=== PATIENT | male | born 1970 ===

== ENCOUNTER 2017-09-12 11:15 | Inpatient (IN) | payer MEDICAID ==
[2017-09-12] MEDS ORDERED: Sodium Chloride 0.9% 1,000 ML IV ONE (12:21)
--- NOTE | 2017-09-12 12:43 | C.PDOC ---
History Of Present Illness 46 y/o male with PMHx of alcohol abuse, brought in by ambulance for complaints of multiple episodes of watery diarrhea and vomiting for 2 days. Noted some blood in the vomitus this morning. Pt reports he is not tolerating PO since this morning. Otherwise pt denies fever, chills, chest pain, SOB, dizziness, or blood in the stool. Also notes his skin is slightly yellow. Time Seen by Provider: 09/12/17 12:00 Chief Complaint (Nursing): GI Problem History Per: Patient History/Exam Limitations: no limitations Onset/Duration Of Symptoms: Days (x2) Current Symptoms Are (Timing): Still Present Associated Symptoms: Vomiting, Diarrhea Past Medical History Reviewed: Historical Data, Nursing Documentation, Vital Signs Vital Signs: Last Vital Signs Temp 99.5 F 09/12/17 11:40 Pulse 78 09/12/17 14:24 Resp 17 09/12/17 14:24 BP 104/59 L 09/12/17 14:24 Pulse Ox 100 09/12/17 14:24 - Medical History PMH: Diabetes, GERD Surgical History: No Surg Hx Family History: States: No Known Family Hx - Social History Hx Tobacco Use: No Hx Alcohol Use: No (FORMER ALCOHOLIC) Hx Substance Use: No Review Of Systems Except As Marked, All Systems Reviewed And Found Negative. Constitutional: Negative for: Fever, Chills Cardiovascular: Negative for: Chest Pain Respiratory: Negative for: Shortness of Breath Gastrointestinal: Positive for: Nausea, Vomiting, Abdominal Pain, Diarrhea, Hematemesis. Negative for: Hematochezia, Rectal Pain Skin: Positive for: Jaundice Neurological: Negative for: Dizziness Physical Exam - Physical Exam Appears: Non-toxic, No Acute Distress, Chronically Ill Skin: Warm, Dry, Jaundice (slight) Head: Normacephalic Eye(s): bilateral: PERRL, Scleral Icterus (mild) Nose: No Flaring, No Discharge Oral Mucosa: Moist, No Drooling Tongue: Normal Appearing Lips: Normal Appearing Throat: No Erythema, No Drooling Neck: Trachea Midline, No Midline Cervical Tenderness, No Paracervical Tenderness, Supple Chest: Symmetrical, No Deformity Cardiovascular: Rhythm Regular, No Murmur, No JVD, Other ((-) carotid bruits B/L ) Respiratory: No Decreased Breath Sounds, No Accessory Muscle Use, No Rales, No Rhonchi, No Wheezing Gastrointestinal/Abdominal: Soft, Tenderness (mild epigastric tenderness), No Organomegaly, No Distention, No Guarding, No Rebound Back: No CVA Tenderness Extremity: Normal ROM, No Pedal Edema, No Swelling Extremity: Bilateral: Atraumatic, No Pedal Edema, Normal ROM Pulses: Left Dorsalis Pedis: Normal, Right Dorsalis Pedis: Normal Neurological/Psych: Oriented x3, Normal Speech, Normal Motor, Normal Sensation, Normal Reflexes ED Course And Treatment - Laboratory Results Result Diagrams: 09/12/17 12:33 09/12/17 12:33 Lab Interpretation: Abnormal ECG: Interpreted By Me, Viewed By Me ECG Interpretation: Normal Interpretation Of ECG: SR@65/min, NAD, no acute T wave or ST-T changes O2 Sat by Pulse Oximetry: 100 (RA) Pulse Ox Interpretation: Normal Progress Note: Pt wqasOBS in EDfor 3 hours and remained unchanged. on re-eval, appears comofrtable, hemodynamicaly stable. Pale, sick appearence. Blood work review and appears abnormal. CT abd/pelvis acute pancreatitis. Case discussed with and admission arranged to tele w/dx: GI bleed, Acute anemia, acute pancreatitis. Transfusion of PRBS initaited, per request . Disposition - Disposition Disposition: HOSPITALIZED Disposition Time: 14:05 Condition: STABLE Forms: [facility] ([place]) - Clinical Impression Clinical Impression: Gastrointestinal hemorrhage, Pancreatitis, Anemia - PA / PARASITOLOGY TEACHER / Resident Statement MD/DO has reviewed & agrees with the documentation as recorded. - Scribe Statement The provider has reviewed the documentation as recorded by the Scribe (Jess Werner) All medical record entries made by the Scribe were at my direction and personally dictated by me. I have reviewed the chart and agree that the record accurately reflects my personal performance of the history, physical exam, medical decision making, and the department course for this patient. I have also personally directed, reviewed, and agree with the discharge instructions and disposition.
[2017-09-12 12:44] LABS: HEMOGLOBIN 7.4 g/dL (12.0-18.0); NRBC % 0.1 % (0.0-2.0); WHITE BLOOD COUNT 2.8 K/uL (4.8-10.8)
[2017-09-12 12:46] LABS: SQUAMOUS EPITHIAL < 1 /hpf (0-5); URINE BILIRUBIN NEGATIVE (NEGATIVE); URINE BLOOD NEGATIVE (NEGATIVE); URINE CLARITY Clear (Clear); URINE COLOR Amber (YELLOW); URINE GLUCOSE (UA) NORMAL (Normal); URINE LEUKOCYTE ESTERASE NEG Leu/uL (Negative); URINE PROTEIN 1+ mg/dL (NEGATIVE)
[2017-09-12 12:50] LABS: BASO % 0.8 % (0.0-2.0); EOS % 0.1 % (0.0-4.0); LYMPH # 0.5 K/uL (1.0-4.3); MEAN CELL VOLUME 88.6 fL (80.0-94.0); MEAN CORPUSCULAR HEMOGLOBIN 28.9 pg (27.0-31.0); MEAN CORPUSCULAR HGB CONC 32.6 g/dL (33.0-37.0); MEAN PLATELET VOLUME 9.3 fL (7.2-11.7); MONO # 0.3 K/uL (0.0-0.8); MONO % 9.1 % (0.0-10.0); RBC 2.56 Mil/uL (4.40-5.90); RED CELL DISTRIBUTION WIDTH 16.5 % (11.5-14.5)
[2017-09-12 12:52] LABS: ALB/GLOB RATIO 1.3 (1.0-2.1); ALBUMIN 3.4 g/dL (3.5-5.0); ALT/SGPT 61 U/L (21-72); AST/SGOT 159 U/L (17-59); BLOOD UREA NITROGEN 16 mg/dL (9-20); CALCIUM 8.3 mg/dl (8.6-10.4); GFR AFRICAN-AMERICAN > 60; GFR NON-AFRICAN AMERICAN > 60; LIPASE 39 U/L (23-300)
[2017-09-12] MEDS ORDERED: Sodium Chloride 0.9% 1,000 ML ONE (12:53)
[2017-09-12 12:54] LABS: PROTHROMBIN TIME 21.6 SECONDS (9.7-12.2)
[2017-09-12] MEDS ORDERED: Iodixanol 320 MG/ML 100 ML BOTTLE IV ONE (13:21)
[2017-09-12 13:24] LABS: BARBITURATES, UR NEGATIVE (NEGATIVE); BENZODIAZEPINES, UR NEGATIVE (NEGATIVE); OPIATES, UR NEGATIVE (NEGATIVE); PHENCYCLIDINE, UR NEGATIVE (NEGATIVE)
--- NOTE | 2017-09-12 13:44 | RAD ---
PROCEDURE: CHEST RADIOGRAPH, 1 VIEW HISTORY: abd pain COMPARISON: None available. FINDINGS: LUNGS: Clear. PLEURA: No pneumothorax or pleural fluid seen. CARDIOVASCULAR: Normal. OSSEOUS STRUCTURES: No significant abnormalities. VISUALIZED UPPER ABDOMEN: Normal. OTHER FINDINGS: None. IMPRESSION: No active disease. Concordant results with the preliminary interpretation rendered by the emergency department physician procedure.
--- NOTE | 2017-09-12 13:58 | CT ---
PROCEDURE: CT Abdomen and Pelvis with contrast HISTORY: Mid abdominal pain, GI bleed. COMPARISON: None. TECHNIQUE: Contrast dose: 100 cc Visipaque 320. Radiation dose: Total exam DLP = 230.50 mGy-cm. This CT exam was performed using one or more of the following dose reduction techniques: Automated exposure control, adjustment of the mA and/or kV according to patient size, and/or use of iterative reconstruction technique. FINDINGS: LOWER THORAX: Unremarkable. LIVER: Hepatic steatosis. No focal masses. No intrahepatic bile duct dilatation or perihepatic ascites. GALLBLADDER AND BILE DUCTS: Unremarkable. PANCREAS: Diffuse calcifications within an atrophic pancreas consistent with chronic pancreatitis. There is haziness and edematous change in the pancreatic head suggesting superimposed acute pancreatitis. SPLEEN: Unremarkable. ADRENALS: Unremarkable. No mass. KIDNEYS AND URETERS: Unremarkable. No hydronephrosis. No solid mass. VASCULATURE: Unremarkable. No aortic aneurysm. BOWEL: Unremarkable. No obstruction. No gross mural thickening. APPENDIX: Normal appendix. PERITONEUM: Unremarkable. No free fluid. No free air. LYMPH NODES: Unremarkable. No enlarged lymph nodes. BLADDER: Unremarkable. REPRODUCTIVE: Unremarkable. BONES: No acute fracture. Multilevel degenerative changes primarily affecting mid and lower lumbar spine. 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 OTHER FINDINGS: None. IMPRESSION: Edematous pancreatic head/ uncinate process likely a mild acute pancreatitis superimposed upon chronic pancreatitis. No evidence of pseudocyst formation or other acute pancreatic/peripancreatic pathologic process. Additional benign and/or incidental findings described above.
[2017-09-12] MEDS ORDERED: DiphenhydrAMINE 50 mg/ml Inj IVP STA (15:56)
[2017-09-12] MEDS ORDERED: Phytonadione 10 mg/ml Inj (Adult) SC STA (15:58)
[2017-09-12] MEDS ORDERED: Magnesium Citrate Oral SOL (300 ml) PO SCH (16:00)
[2017-09-12] MEDS ORDERED: DiphenhydrAMINE 50 mg/ml Inj ONE (16:06)
[2017-09-12] MEDS ORDERED: Magnesium Citrate Oral SOL (300 ml) ONE (16:14)
[2017-09-12] MEDS ORDERED: Phytonadione 10 mg/ml Inj (Adult) ONE (16:14)
[2017-09-12] MEDS ORDERED: Magnesium Citrate Oral SOL (300 ml) PO ONE ×3 (17:00→22:00)
[2017-09-12] MEDS ORDERED: Bisacodyl 5mg EC Tab PO SCH (20:00)
--- NOTE | 2017-09-12 22:11 | CP.PCM.HP ---
History of Present Illness - History of Present Illness History of Present Illness: CC: melena, diarrhea History Of Present Illness 46 y/o male with PMHx of alcohol abuse, liver disaese brought in by ambulance for complaints of multiple episodes of watery diarrhea and vomiting for 2 days. Noted some blood in the vomitus this morning. Pt reports he is not tolerating PO since this morning. Otherwise pt denies fever, chills, chest pain, SOB, dizziness, or blood in the stool. Also notes his skin is slightly yellow.pt had a fall and developed laceration on bridge mica nose, pt is confused, agitated, neurology consult requested and CT head odered looks like he had seizure as he had a tongue bite Present on Admission - Present on Admission Any Indicators Present on Admission: Yes Review of Systems - Review of Systems Systems not reviewed;Unavailable: Acuity of Condition - Constitutional Constitutional: Fatigue, Lethargy, Malaise, Weakness - EENT Eyes: absent: As Per HPI, Blind Spots, Blurred Vision, Change in Vision, Decreased Night Vision, Diplopia, Discharge, Dry Eye, Exophthalmos, Floaters, Irritation, Itchy Eyes, Loss of Peripheral Vision, Pain, Photophobia, Requires Corrective Lenses, Sees Flashes, Spots in Vision, Tunnel Vision, Other Visual Disturbances, Loss of Vision, Other Nose/Mouth/Throat: absent: As Per HPI, Epistaxis, Nasal Congestion, Nasal Discharge, Nasal Obstruction, Nasal Trauma, Nose Pain, Post Nasal Drip, Sinus Pain, Sinus Pressure, Bleeding Gums, Change in Voice, Dental Pain, Dry Mouth, Dysphagia, Halitosis, Hoarsness, Lip Swelling, Mouth Lesions, Mouth Pain, Odynophagia, Sore Throat, Throat Swelling, Tongue Swelling, Facial Pain, Neck Pain, Neck Mass, Other - Cardiovascular Cardiovascular: absent: As Per HPI, Acrocyanosis, Chest Pain, Chest Pain at Rest , Chest Pain with Activity, Claudication, Diaphoresis, Dyspnea, Dyspnea on Exertion, Edema, Irregular Heart Rhythm, Pain Radiating to Arm/Neck/Jaw, Leg Edema, Leg Ulcers, Lightheadedness, Orthopnea, Palpitations, Paroxysmal Nocturnal Dyspnea, Pedal Edema, Radiating Pain, Rapid Heart Rate, Slow Heart Rate, Syncope, Other - Musculoskeletal Musculoskeletal: Arthralgias, Limited Range of Motion, Muscle Weakness, Myalgias , Stiffness - Neurological Neurological: Abnormal Movements, Confusion, Dizziness, Frequent Falls, Memory Loss, Paresthesias, Weakness - Psychiatric Psychiatric: Anhedonia, Anxiety, Behavioral Changes, Confusion, Difficulty Concentrating Past Patient History - Past Medical History & Family History Past Medical History?: Yes - Past Social History Smoking Status: Never Smoked - CARDIAC Hx Cardiac Disorders: No - PULMONARY Hx Respiratory Disorders: No - NEUROLOGICAL Hx Neurological Disorder: No - HEENT Hx HEENT Problems: No - RENAL Hx Chronic Kidney Disease: No - ENDOCRINE/METABOLIC Hx Endocrine Disorders: Yes Hx Diabetes Mellitus Type 2: Yes - HEMATOLOGICAL/ONCOLOGICAL Hx Blood Disorders: No - INTEGUMENTARY Hx Dermatological Problems: No - MUSCULOSKELETAL/RHEUMATOLOGICAL Hx Musculoskeletal Disorders: Yes Hx Falls: Yes - GASTROINTESTINAL Hx Gastrointestinal Disorders: Yes Hx Gastroesophageal Reflux: Yes - GENITOURINARY/GYNECOLOGICAL Hx Genitourinary Disorders: No - PSYCHIATRIC Hx Psychophysiologic Disorder: No Hx Substance Use: No - SURGICAL HISTORY Hx Surgeries: No - ANESTHESIA Hx Anesthesia: No Hx Anesthesia Reactions: No Hx Malignant Hyperthermia: No Has any member of the family had a problem w/ anesthesia?: No Meds Allergies/Adverse Reactions: Allergies Allergy/AdvReac Type Severity Reaction Status Date / Time No Known Allergies Allergy Verified 09/12/17 11:46 Physical Exam - Constitutional Appears: Toxic, Confused - Eye Exam Eye Exam: EOMI, Normal appearance, PERRL Pupil Exam: NORMAL ACCOMODATION, PERRL - Respiratory Exam Respiratory Exam: Clear to Auscultation Bilateral, NORMAL BREATHING PATTERN - Cardiovascular Exam Cardiovascular Exam: REGULAR RHYTHM Results - Vital Signs Recent Vital Signs: Last Vital Signs Temp 98.6 F 09/12/17 20:38 Pulse 74 09/12/17 20:38 Resp 18 09/12/17 20:38 BP 109/70 09/12/17 20:38 Pulse Ox 100 09/12/17 17:53 - Labs Result Diagrams: 09/14/17 08:19 09/14/17 08:19 Labs: Laboratory Results - last 24 hr 09/12/17 09/12/17 09/12/17 11:26 12:33 12:33 WBC 2.8 L RBC 2.56 L Hgb 7.4 L Hct 22.7 L MCV 88.6 MCH 28.9 MCHC 32.6 L RDW 16.5 H Plt Count 60 L MPV 9.3 Neut % (Auto) 71.0 Lymph % (Auto) 19.0 L [place] % (Auto) 9.1 Eos % (Auto) 0.1 Baso % (Auto) 0.8 Neut # (Auto) 2.0 Lymph # (Auto) 0.5 L [place] # (Auto) 0.3 Eos # (Auto) 0.0 Baso # (Auto) 0.0 Differential Comment PT 21.6 H INR 2.0 APTT 27 Sodium Potassium Chloride Carbon Dioxide Anion Gap BUN Creatinine Est GFR ( Amer) Est GFR (Non-Af Amer) POC Glucose (mg/dL) 180 H Random Glucose Calcium Total Bilirubin AST ALT Alkaline Phosphatase Ammonia Total Protein Albumin Globulin Albumin/Globulin Ratio Lipase Urine Color Urine Clarity Urine pH Ur Specific [place] Urine Protein Urine Glucose (UA) Urine Ketones Urine Blood Urine Nitrate Urine Bilirubin Urine Urobilinogen Ur Leukocyte Esterase Urine WBC (Auto) Urine RBC (Auto) Ur Squamous Epith Cells Urine Opiates Screen Urine Methadone Screen Ur Barbiturates Screen Ur Phencyclidine Scrn Ur Amphetamines Screen U Benzodiazepines Scrn U Oth Cocaine Metabols U Cannabinoids Screen Alcohol, Quantitative Blood Type Blood Type Confirm Antibody Screen 09/12/17 09/12/17 09/12/17 12:33 12:33 12:33 WBC RBC Hgb Hct MCV MCH MCHC RDW Plt Count MPV Neut % (Auto) Lymph % (Auto) [place] % (Auto) Eos % (Auto) Baso % (Auto) Neut # (Auto) Lymph # (Auto) [place] # (Auto) Eos # (Auto) Baso # (Auto) Differential Comment PT INR APTT Sodium 135 Potassium 3.2 L Chloride 96 L Carbon Dioxide 24 Anion Gap 19 BUN 16 Creatinine 0.6 L Est GFR ( Amer) > 60 Est GFR (Non-Af Amer) > 60 POC Glucose (mg/dL) Random Glucose 155 H Calcium 8.3 L Total Bilirubin 2.2 H AST 159 H ALT 61 Alkaline Phosphatase 93 Ammonia 16 Total Protein 6.1 L Albumin 3.4 L Globulin 2.7 Albumin/Globulin Ratio 1.3 Lipase 39 Urine Color [place] Urine Clarity Clear Urine pH 8.0 Ur Specific [place] 1.021 Urine Protein 1+ H Urine Glucose (UA) Normal Urine Ketones 1+ H Urine Blood Negative Urine Nitrate Negative Urine Bilirubin Negative Urine Urobilinogen 4.0 Ur Leukocyte Esterase Neg Urine WBC (Auto) < 1 Urine RBC (Auto) < 1 Ur Squamous Epith Cells < 1 Urine Opiates Screen Urine Methadone Screen Ur Barbiturates Screen Ur Phencyclidine Scrn Ur Amphetamines Screen U Benzodiazepines Scrn U Oth Cocaine Metabols U Cannabinoids Screen Alcohol, Quantitative < 10 Blood Type Blood Type Confirm Antibody Screen 09/12/17 09/12/17 12:33 14:13 WBC RBC Hgb Hct MCV MCH MCHC RDW Plt Count MPV Neut % (Auto) Lymph % (Auto) [place] % (Auto) Eos % (Auto) Baso % (Auto) Neut # (Auto) Lymph # (Auto) [place] # (Auto) Eos # (Auto) Baso # (Auto) Differential Comment PT INR APTT Sodium Potassium Chloride Carbon Dioxide Anion Gap BUN Creatinine Est GFR ( Amer) Est GFR (Non-Af Amer) POC Glucose (mg/dL) Random Glucose Calcium Total Bilirubin AST ALT Alkaline Phosphatase Ammonia Total Protein Albumin Globulin Albumin/Globulin Ratio Lipase Urine Color Urine Clarity Urine pH Ur Specific [place] Urine Protein Urine Glucose (UA) Urine Ketones Urine Blood Urine Nitrate Urine Bilirubin Urine Urobilinogen Ur Leukocyte Esterase Urine WBC (Auto) Urine RBC (Auto) Ur Squamous Epith Cells Urine Opiates Screen Negative Urine Methadone Screen Negative Ur Barbiturates Screen Negative Ur Phencyclidine Scrn Negative Ur Amphetamines Screen Negative U Benzodiazepines Scrn Negative U Oth Cocaine Metabols Negative U Cannabinoids Screen Negative Alcohol, Quantitative Blood Type B POSITIVE Blood Type Confirm B POSITIVE Antibody Screen Negative Assessment & Plan (1) Anemia Status: Acute (2) Gastrointestinal hemorrhage Status: Acute (3) Head injury Status: Acute Priority: Medium (4) Pancreatitis Status: Acute (5) Pancytopenia Status: Acute
[2017-09-12 23:05] LABS: MEAN CELL VOLUME 87.1 fL (80.0-94.0); MEAN CORPUSCULAR HGB CONC 33.3 g/dL (33.0-37.0); MEAN PLATELET VOLUME 8.4 fL (7.2-11.7); RBC 2.75 Mil/uL (4.40-5.90); RED CELL DISTRIBUTION WIDTH 16.1 % (11.5-14.5)
[2017-09-12 23:07] LABS: WHITE BLOOD COUNT 1.5 K/uL (4.8-10.8)
[2017-09-13 07:39] LABS: BLOOD UREA NITROGEN 11 mg/dL (9-20); CALCIUM 7.8 mg/dl (8.6-10.4); GFR AFRICAN-AMERICAN > 60; GFR NON-AFRICAN AMERICAN > 60
[2017-09-13] MEDS ORDERED: Propofol 10 mg/ml Inj (20 ML) ONE ×2 (10:43→10:59)
[2017-09-13] MEDS ORDERED: Midazolam 2 MG/2 ML VIAL ONE (10:46)
[2017-09-13 10:50] LABS: HEMOGLOBIN 8.1 g/dL (12.0-18.0); MEAN CELL VOLUME 87.7 fL (80.0-94.0); RBC 2.79 Mil/uL (4.40-5.90); WHITE BLOOD COUNT 4.8 K/uL (4.8-10.8)
[2017-09-13] MEDS ORDERED: EPINEPHrine 1 mg/ml (1:1000) Inj ONE (10:54)
[2017-09-13 11:01] LABS: BLOOD UREA NITROGEN 12 mg/dL (9-20); CALCIUM 7.7 mg/dl (8.6-10.4); GFR AFRICAN-AMERICAN > 60; GFR NON-AFRICAN AMERICAN > 60
--- NOTE | 2017-09-13 12:04 | CP.PCM.CON ---
History of Present Illness - History of Present Illness History of Present Illness: 46 year old male with a history of alcohol abuse, admitted with N/V, diarrhea, found to be pancytopenic. The patient is unaware of blood problems in the past. He does note to seeing blood in the toilet bowl. He denies fevers and chills. Past medical history: Alcoholism Past surgical history: Denies Family history: Denies hematologic and oncologic problems Social history: 2 shots of melquiades and 2 beers daily Allergies: NKA Review of systems: All remaining review of systems including HEENT, cardiovacular, respiratory, gastrointestinal, genitourinary, musculoskeletal, dermatologic, neurologic, and psychiatric are negative unless mentioned in the HPI. Past Patient History - Past Medical History & Family History Past Medical History?: Yes - Past Social History Smoking Status: Never Smoked - CARDIAC Hx Cardiac Disorders: No - PULMONARY Hx Respiratory Disorders: No - NEUROLOGICAL Hx Neurological Disorder: No - HEENT Hx HEENT Problems: No - RENAL Hx Chronic Kidney Disease: No - ENDOCRINE/METABOLIC Hx Endocrine Disorders: Yes Hx Diabetes Mellitus Type 2: Yes - HEMATOLOGICAL/ONCOLOGICAL Hx Blood Disorders: No - INTEGUMENTARY Hx Dermatological Problems: No - MUSCULOSKELETAL/RHEUMATOLOGICAL Hx Musculoskeletal Disorders: Yes Hx Falls: Yes - GASTROINTESTINAL Hx Gastrointestinal Disorders: Yes Hx Gastroesophageal Reflux: Yes - GENITOURINARY/GYNECOLOGICAL Hx Genitourinary Disorders: No - PSYCHIATRIC Hx Psychophysiologic Disorder: No Hx Substance Use: No - SURGICAL HISTORY Hx Surgeries: No - ANESTHESIA Hx Anesthesia: No Hx Anesthesia Reactions: No Hx Malignant Hyperthermia: No Has any member of the family had a problem w/ anesthesia?: No Meds Allergies/Adverse Reactions: Allergies Allergy/AdvReac Type Severity Reaction Status Date / Time No Known Allergies Allergy Verified 09/12/17 11:46 - Medications Medications: Current Medications Bisacodyl (Dulcolax) 10 mg PO ONCE [facility] Metoclopramide HCl (Reglan) 5 mg IVP Q6 [facility] Last Admin: 09/13/17 05:09 Dose: 5 mg Pantoprazole Sodium (Protonix Inj) 40 mg IVPB Q12H [facility] Last Admin: 09/13/17 05:09 Dose: 40 mg Physical Exam - Head Exam Head Exam: ATRAUMATIC - Eye Exam Eye Exam: Normal appearance - ENT Exam ENT Exam: Mucous Membranes Dry - Respiratory Exam Respiratory Exam: NORMAL BREATHING PATTERN - Cardiovascular Exam Cardiovascular Exam: +S1, +S2 - GI/Abdominal Exam GI & Abdominal Exam: Normal Bowel Sounds - Rectal Exam Rectal Exam: NORMAL INSPECTION Results - Vital Signs Recent Vital Signs: Last Vital Signs Temp 97.5 F L 09/13/17 11:08 Pulse 59 L 09/13/17 11:38 Resp 13 09/13/17 11:38 BP 94/60 L 09/13/17 11:38 Pulse Ox 100 09/13/17 11:38 - Labs Result Diagrams: 09/13/17 19:51 09/13/17 19:51 Labs: Laboratory Results - last 24 hr 09/12/17 09/12/17 09/12/17 12:33 12:33 12:33 WBC 2.8 L RBC 2.56 L Hgb 7.4 L Hct 22.7 L MCV 88.6 MCH 28.9 MCHC 32.6 L RDW 16.5 H Plt Count 60 L MPV 9.3 Neut % (Auto) 71.0 Lymph % (Auto) 19.0 L [place] % (Auto) 9.1 Eos % (Auto) 0.1 Baso % (Auto) 0.8 Neut # (Auto) 2.0 Lymph # (Auto) 0.5 L [place] # (Auto) 0.3 Eos # (Auto) 0.0 Baso # (Auto) 0.0 Differential Comment Smear Path Review PT 21.6 H INR 2.0 APTT 27 Sodium Potassium Chloride Carbon Dioxide Anion Gap BUN Creatinine Est GFR ( Amer) Est GFR (Non-Af Amer) POC Glucose (mg/dL) Random Glucose Calcium Total Bilirubin AST ALT Alkaline Phosphatase Ammonia Total Protein Albumin Globulin Albumin/Globulin Ratio Lipase Urine Color [place] Urine Clarity Clear Urine pH 8.0 Ur Specific [place] 1.021 Urine Protein 1+ H Urine Glucose (UA) Normal Urine Ketones 1+ H Urine Blood Negative Urine Nitrate Negative Urine Bilirubin Negative Urine Urobilinogen 4.0 Ur Leukocyte Esterase Neg Urine WBC (Auto) < 1 Urine RBC (Auto) < 1 Ur Squamous Epith Cells < 1 Urine Opiates Screen Urine Methadone Screen Ur Barbiturates Screen Ur Phencyclidine Scrn Ur Amphetamines Screen U Benzodiazepines Scrn U Oth Cocaine Metabols U Cannabinoids Screen Alcohol, Quantitative Blood Type Blood Type Confirm Antibody Screen 09/12/17 09/12/17 09/12/17 12:33 12:33 12:33 WBC RBC Hgb Hct MCV MCH MCHC RDW Plt Count MPV Neut % (Auto) Lymph % (Auto) [place] % (Auto) Eos % (Auto) Baso % (Auto) Neut # (Auto) Lymph # (Auto) [place] # (Auto) Eos # (Auto) Baso # (Auto) Differential Comment Smear Path Review PT INR APTT Sodium 135 Potassium 3.2 L Chloride 96 L Carbon Dioxide 24 Anion Gap 19 BUN 16 Creatinine 0.6 L Est GFR ( Amer) > 60 Est GFR (Non-Af Amer) > 60 POC Glucose (mg/dL) Random Glucose 155 H Calcium 8.3 L Total Bilirubin 2.2 H AST 159 H ALT 61 Alkaline Phosphatase 93 Ammonia 16 Total Protein 6.1 L Albumin 3.4 L Globulin 2.7 Albumin/Globulin Ratio 1.3 Lipase 39 Urine Color Urine Clarity Urine pH Ur Specific [place] Urine Protein Urine Glucose (UA) Urine Ketones Urine Blood Urine Nitrate Urine Bilirubin Urine Urobilinogen Ur Leukocyte Esterase Urine WBC (Auto) Urine RBC (Auto) Ur Squamous Epith Cells Urine Opiates Screen Negative Urine Methadone Screen Negative Ur Barbiturates Screen Negative Ur Phencyclidine Scrn Negative Ur Amphetamines Screen Negative U Benzodiazepines Scrn Negative U Oth Cocaine Metabols Negative U Cannabinoids Screen Negative Alcohol, Quantitative < 10 Blood Type Blood Type Confirm Antibody Screen 09/12/17 09/12/17 09/13/17 14:13 22:54 06:13 WBC 1.5 L* RBC 2.75 L Hgb 8.0 L Hct 24.0 L MCV 87.1 MCH 29.0 MCHC 33.3 RDW 16.1 H Plt Count 50 L MPV 8.4 Neut % (Auto) Lymph % (Auto) [place] % (Auto) Eos % (Auto) Baso % (Auto) Neut # (Auto) Lymph # (Auto) [place] # (Auto) Eos # (Auto) Baso # (Auto) Differential Comment Smear Path Review PT INR APTT Sodium Potassium Chloride Carbon Dioxide Anion Gap BUN Creatinine Est GFR ( Amer) Est GFR (Non-Af Amer) POC Glucose (mg/dL) 175 H Random Glucose Calcium Total Bilirubin AST ALT Alkaline Phosphatase Ammonia Total Protein Albumin Globulin Albumin/Globulin Ratio Lipase Urine Color Urine Clarity Urine pH Ur Specific [place] Urine Protein Urine Glucose (UA) Urine Ketones Urine Blood Urine Nitrate Urine Bilirubin Urine Urobilinogen Ur Leukocyte Esterase Urine WBC (Auto) Urine RBC (Auto) Ur Squamous Epith Cells Urine Opiates Screen Urine Methadone Screen Ur Barbiturates Screen Ur Phencyclidine Scrn Ur Amphetamines Screen U Benzodiazepines Scrn U Oth Cocaine Metabols U Cannabinoids Screen Alcohol, Quantitative Blood Type B POSITIVE Blood Type Confirm B POSITIVE Antibody Screen Negative 09/13/17 09/13/17 09/13/17 07:10 10:36 10:36 WBC 4.8 D RBC 2.79 L Hgb 8.1 L Hct 24.5 L MCV 87.7 MCH 29.0 MCHC 33.0 RDW 16.0 H Plt Count 54 L MPV 9.0 Neut % (Auto) Lymph % (Auto) [place] % (Auto) Eos % (Auto) Baso % (Auto) Neut # (Auto) Lymph # (Auto) [place] # (Auto) Eos # (Auto) Baso # (Auto) Differential Comment Smear Path Review PT INR APTT Sodium 135 135 Potassium 3.3 L 3.7 Chloride 100 101 Carbon Dioxide 23 22 Anion Gap 14 16 BUN 11 12 Creatinine 0.6 L 0.6 L Est GFR ( Amer) > 60 > 60 Est GFR (Non-Af Amer) > 60 > 60 POC Glucose (mg/dL) Random Glucose 165 H 141 H Calcium 7.8 L 7.7 L Total Bilirubin AST ALT Alkaline Phosphatase Ammonia Total Protein Albumin Globulin Albumin/Globulin Ratio Lipase Urine Color Urine Clarity Urine pH Ur Specific [place] Urine Protein Urine Glucose (UA) Urine Ketones Urine Blood Urine Nitrate Urine Bilirubin Urine Urobilinogen Ur Leukocyte Esterase Urine WBC (Auto) Urine RBC (Auto) Ur Squamous Epith Cells Urine Opiates Screen Urine Methadone Screen Ur Barbiturates Screen Ur Phencyclidine Scrn Ur Amphetamines Screen U Benzodiazepines Scrn U Oth Cocaine Metabols U Cannabinoids Screen Alcohol, Quantitative Blood Type Blood Type Confirm Antibody Screen Assessment & Plan (1) Pancytopenia Assessment and Plan: likely bone marrow suppression from alcohol will check retic count, b12, folate, ferritin to further characterize anemia anemia of GI blood loss; GI w/u in progress will add HIV and hepatitis panel Thank you for this interesting consult. Status: Acute
[2017-09-13] MEDS ORDERED: Sodium Chloride 0.9% 1,000 ML IV SCH (15:15)
--- NOTE | 2017-09-13 18:41 | NM ---
PROCEDURE: Nuclear medicine gastrointestinal bleeding scan. HISTORY: g i bleeding COMPARISON: None available. TECHNIQUE: 4ccof patient blood was withdrawn and mixed with 22.8 mCi of technetium ultra tagged. Images of the abdomen and pelvis were obtained in the anterior and posterior projection at 1 min intervals over a period of 60 min. 30 minutes of additional imaging was performed subsequently as well with a total of 90 minutes utilized this examination. FINDINGS: No abnormal extravasation of tracer was observed throughout the exam to indicate active bleeding within or outside the gastrointestinal tract. Physiologic activity was seen in the heart, liver, spleen and blood vessels. IMPRESSION: No evidence of active gastrointestinal bleeding.
--- NOTE | 2017-09-13 19:49 | PCM.FALL ---
Post Fall Progress Note - Post Fall Fall Date: 09/13/17 - Post Fall Exam Vital Sign: Temp Pulse Resp BP Pulse Ox 97.6 F 98 H 20 98/63 L 100 09/13/17 15:00 09/13/17 16:00 09/13/17 15:00 09/13/17 15:00 09/13/17 15:00 Skull Exam: Negative for: Scalp wound, Scalp hematoma, Scalp depression, Ridge in skull Eye Exam: Positive for: Pupils equal, Pupils reactive Ear Exam: Negative for: Discharge, Bleeding Nose Exam: Positive for: Bleeding Skin Exam: Negative for: Lacerations Mouth Exam: Positive for: Tongue bitten. Negative for: Teeth dislodge Neck Exam: Negative for: Tenderness Chest Exam: Negative for: Difficulty breathing Abdomen Exam: Negative for: Tenderness Pelvic Exam: Negative for: Tenderness, Hematuria Arm Exam: Negative for: Deformity, Alteration in range of movement Leg Exam: Negative for: Deformity, Alteration in range of movement Other pertinent findings: Very small laceration to the bridge of the nose Impression/Plan: S/p fall 2/2 vasovagal, patient was disoriented and confused" 1. Head Ct W/O contrast 2. EKG 3. CBC, CMP, Coags, lactate 4. Fall precautions 5. Neurochecks Q2H 6. 1:1 observation 7. Neurology consult All management as per primary care, Dr. Dill, who was present as well
[2017-09-13 20:02] LABS: BASO % 0.3 % (0.0-2.0); EOS % 0.4 % (0.0-4.0); HEMOGLOBIN 8.1 g/dL (12.0-18.0); LYMPH # 0.8 K/uL (1.0-4.3); LYMPH % 13.3 % (20.0-40.0); MEAN CELL VOLUME 89.4 fL (80.0-94.0); MEAN CORPUSCULAR HEMOGLOBIN 28.3 pg (27.0-31.0); MEAN CORPUSCULAR HGB CONC 31.7 g/dL (33.0-37.0); MEAN PLATELET VOLUME 8.7 fL (7.2-11.7); MONO # 0.5 K/uL (0.0-0.8); NEUT # 4.5 K/uL (1.8-7.0); NRBC % 0.1 % (0.0-2.0); RBC 2.85 Mil/uL (4.40-5.90); RED CELL DISTRIBUTION WIDTH 16.3 % (11.5-14.5); WHITE BLOOD COUNT 5.8 K/uL (4.8-10.8)
[2017-09-13 20:06] LABS: INR 1.7; PROTHROMBIN TIME 18.4 SECONDS (9.7-12.2)
[2017-09-13 20:11] LABS: ALB/GLOB RATIO 1.2 (1.0-2.1); ALBUMIN 3.3 g/dL (3.5-5.0); ALT/SGPT 45 U/L (21-72); AST/SGOT 122 U/L (17-59); BLOOD UREA NITROGEN 11 mg/dL (9-20); CALCIUM 7.9 mg/dl (8.6-10.4); GFR AFRICAN-AMERICAN > 60; GFR NON-AFRICAN AMERICAN > 60
--- NOTE | 2017-09-13 22:33 | CARD ---
APPROVED REPORT EKG Measurement Heart [id number] <Conclusion> Normal sinus rhythm Normal ECG
[2017-09-14 08:27] LABS: HEMOGLOBIN 7.6 g/dL (12.0-18.0); MEAN CELL VOLUME 88.7 fL (80.0-94.0); MEAN CORPUSCULAR HEMOGLOBIN 29.1 pg (27.0-31.0); MEAN CORPUSCULAR HGB CONC 32.8 g/dL (33.0-37.0); MEAN PLATELET VOLUME 9.1 fL (7.2-11.7); RBC 2.62 Mil/uL (4.40-5.90); RED CELL DISTRIBUTION WIDTH 16.8 % (11.5-14.5)
[2017-09-14 08:47] LABS: BLOOD UREA NITROGEN 9 mg/dL (9-20); CALCIUM 7.6 mg/dl (8.6-10.4); GFR AFRICAN-AMERICAN > 60; GFR NON-AFRICAN AMERICAN > 60
--- NOTE | 2017-09-14 08:47 | CT ---
PROCEDURE: CT HEAD WITHOUT CONTRAST. HISTORY: code star. Injury. Trauma. COMPARISON: None available. TECHNIQUE: Axial computed tomography images were obtained through the head/brain without intravenous contrast. Radiation dose: Total exam DLP = 1154 mGy-cm. This CT exam was performed using one or more of the following dose reduction techniques: Automated exposure control, adjustment of the mA and/or kV according to patient size, and/or use of iterative reconstruction technique. FINDINGS: HEMORRHAGE: No intracranial hemorrhage. BRAIN: No mass effect or edema. No atrophy or chronic microvascular ischemic changes. VENTRICLES: Unremarkable. No hydrocephalus. CALVARIUM: Unremarkable. PARANASAL SINUSES: Small amount of free fluid in the right maxillary sinus. Mucosal thickening of the bilateral maxillary sinuses. MASTOID AIR CELLS: Unremarkable as visualized. No inflammatory changes. OTHER FINDINGS: Scar versus focal edema of the left parietal scalp. IMPRESSION: Small amount of free fluid in the right maxillary sinus. This may be secondary to recent trauma. Clinical correlation. Scar versus focal edema in the left parietal scalp. Correlation with physical findings would be helpful. These findings were preliminarily reported at 8:13 p.m. on 09/13/[address] Duncan Dunn from [facility].
[2017-09-14 09:12] LABS: HEPATITIS B SURFACE AG Negative (NEGATIVE)
[2017-09-14 09:18] LABS: HEPATITIS A IGM NEGATIVE (NEGATIVE); HEPATITIS B CORE AB NEGATIVE (NEGATIVE)
[2017-09-14 09:26] LABS: FERRITIN 36.5 ng/mL
[2017-09-14 09:30] LABS: HEPATITIS C ANTIBODY NEGATIVE (NEGATIVE)
[2017-09-14 09:57] LABS: FOLATE 6.8 ng/mL
--- NOTE | 2017-09-14 12:53 | CP.PCM.CON ---
History of Present Illness - History of Present Illness History of Present Illness: Neurology Consultation Note: Mr. Simental is a 46-year-old man with a past medical history of alcohol abuse, brought in by ambulance for complaints of multiple episodes of watery diarrhea and vomiting for 2 days. He was found to have pancytopenia. Last night the patient got out of bed, felt unstable, fell and hit his head. NO reported seizures or loss of consciousness. CT scan of the head did not show any intracranial abnormalities. Today, the patient is awake, alert and oriented without any notable cognitive deficits. Review of Systems - Review of Systems All systems: reviewed and no additional remarkable complaints except Past Patient History - Past Medical History & Family History Past Medical History?: Yes - Past Social History Smoking Status: Never Smoked - CARDIAC Hx Cardiac Disorders: No - PULMONARY Hx Respiratory Disorders: No - NEUROLOGICAL Hx Neurological Disorder: No - HEENT Hx HEENT Problems: No - RENAL Hx Chronic Kidney Disease: No - ENDOCRINE/METABOLIC Hx Endocrine Disorders: Yes Hx Diabetes Mellitus Type 2: Yes - HEMATOLOGICAL/ONCOLOGICAL Hx Blood Disorders: No - INTEGUMENTARY Hx Dermatological Problems: No - MUSCULOSKELETAL/RHEUMATOLOGICAL Hx Musculoskeletal Disorders: Yes Hx Falls: Yes - GASTROINTESTINAL Hx Gastrointestinal Disorders: Yes Hx Gastroesophageal Reflux: Yes - GENITOURINARY/GYNECOLOGICAL Hx Genitourinary Disorders: No - PSYCHIATRIC Hx Psychophysiologic Disorder: No Hx Substance Use: No - SURGICAL HISTORY Hx Surgeries: No - ANESTHESIA Hx Anesthesia: No Hx Anesthesia Reactions: No Hx Malignant Hyperthermia: No Has any member of the family had a problem w/ anesthesia?: No Meds Allergies/Adverse Reactions: Allergies Allergy/AdvReac Type Severity Reaction Status Date / Time No Known Allergies Allergy Verified 09/12/17 11:46 - Medications Medications: Current Medications Bisacodyl (Dulcolax) 10 mg PO ONCE NANCY Potassium Chloride (Potassium Chloride 20 Meq/100 Ml) 20 meq in 100 mls @ 50 mls/hr IVPB ONCE ONE Stop: 09/14/17 14:23 Metoclopramide HCl (Reglan) 5 mg IVP Q6 [facility] Last Admin: 09/14/17 05:21 Dose: 5 mg Pantoprazole Sodium (Protonix Inj) 40 mg IVPB Q12H [facility] Last Admin: 09/14/17 05:21 Dose: 40 mg Physical Exam - Head Exam Additional comments: laceration on bridge of nose and bruise on left frontal forehead - Neurological Exam Neurological exam: Alert, CN II-XII Intact, Normal Gait, Oriented x3, Reflexes Normal Results - Vital Signs Recent Vital Signs: Last Vital Signs Temp 98.7 F 09/14/17 07:00 Pulse 52 L 09/14/17 07:00 Resp 20 09/14/17 07:00 BP 107/72 09/14/17 07:00 Pulse Ox 99 09/14/17 07:00 - Labs Result Diagrams: 09/14/17 08:19 09/14/17 08:19 Labs: Laboratory Results - last 24 hr 09/13/17 09/13/17 09/13/17 15:54 19:51 19:51 WBC 5.8 RBC 2.85 L Hgb 8.1 L Hct 25.5 L MCV 89.4 MCH 28.3 MCHC 31.7 L RDW 16.3 H Plt Count 59 L MPV 8.7 Neut % (Auto) 77.0 H Lymph % (Auto) 13.3 L Crawford % (Auto) 9.0 Eos % (Auto) 0.4 Baso % (Auto) 0.3 Neut # (Auto) 4.5 Lymph # (Auto) 0.8 L Crawford # (Auto) 0.5 Eos # (Auto) 0.0 Baso # (Auto) 0.0 Retic Count PT 18.4 H INR 1.7 Sodium Potassium Chloride Carbon Dioxide Anion Gap BUN Creatinine Est GFR ( Amer) Est GFR (Non-Af Amer) POC Glucose (mg/dL) 159 H Random Glucose Lactic Acid Calcium Ferritin Total Bilirubin AST ALT Alkaline Phosphatase Ammonia Total Protein Albumin Globulin Albumin/Globulin Ratio Vitamin B12 Folate TSH 3rd Generation Hepatitis A IgM Ab Hep Bs Antigen Hep B Core IgM Ab Hepatitis C Antibody HIV 1&2 Antibody Screen 09/13/17 09/13/17 09/13/17 19:51 19:51 21:47 WBC RBC Hgb Hct MCV MCH MCHC RDW Plt Count MPV Neut % (Auto) Lymph % (Auto) Crawford % (Auto) Eos % (Auto) Baso % (Auto) Neut # (Auto) Lymph # (Auto) Crawford # (Auto) Eos # (Auto) Baso # (Auto) Retic Count PT INR Sodium 135 Potassium 3.5 L Chloride 100 Carbon Dioxide 16 L Anion Gap 22 H BUN 11 Creatinine 0.6 L Est GFR ( Amer) > 60 Est GFR (Non-Af Amer) > 60 POC Glucose (mg/dL) 171 H Random Glucose 181 H Lactic Acid 8.7 H* Calcium 7.9 L Ferritin Total Bilirubin 1.9 H AST 122 H D ALT 45 Alkaline Phosphatase 76 Ammonia Total Protein 6.1 L Albumin 3.3 L Globulin 2.8 Albumin/Globulin Ratio 1.2 Vitamin B12 Folate TSH 3rd Generation Hepatitis A IgM Ab Hep Bs Antigen Hep B Core IgM Ab Hepatitis C Antibody HIV 1&2 Antibody Screen 09/13/17 09/14/17 09/14/17 22:43 06:38 08:19 WBC RBC Hgb Hct MCV MCH MCHC RDW Plt Count MPV Neut % (Auto) Lymph % (Auto) Crawford % (Auto) Eos % (Auto) Baso % (Auto) Neut # (Auto) Lymph # (Auto) Crawford # (Auto) Eos # (Auto) Baso # (Auto) Retic Count PT INR Sodium Potassium Chloride Carbon Dioxide Anion Gap BUN Creatinine Est GFR ( Amer) Est GFR (Non-Af Amer) POC Glucose (mg/dL) 97 Random Glucose Lactic Acid 2.0 Calcium Ferritin Total Bilirubin AST ALT Alkaline Phosphatase Ammonia < 9 L Total Protein Albumin Globulin Albumin/Globulin Ratio Vitamin B12 Folate TSH 3rd Generation Hepatitis A IgM Ab Hep Bs Antigen Hep B Core IgM Ab Hepatitis C Antibody HIV 1&2 Antibody Screen 09/14/17 09/14/17 09/14/17 08:19 08:19 08:19 WBC 3.0 L RBC 2.62 L Hgb 7.6 L Hct 23.2 L MCV 88.7 MCH 29.1 MCHC 32.8 L RDW 16.8 H Plt Count 56 L MPV 9.1 Neut % (Auto) Lymph % (Auto) Crawford % (Auto) Eos % (Auto) Baso % (Auto) Neut # (Auto) Lymph # (Auto) Crawford # (Auto) Eos # (Auto) Baso # (Auto) Retic Count 4.6 H PT INR Sodium 137 Potassium 3.1 L Chloride 103 Carbon Dioxide 23 Anion Gap 13 BUN 9 Creatinine 0.6 L Est GFR ( Amer) > 60 Est GFR (Non-Af Amer) > 60 POC Glucose (mg/dL) Random Glucose 103 Lactic Acid Calcium 7.6 L Ferritin 36.5 Total Bilirubin AST ALT Alkaline Phosphatase Ammonia Total Protein Albumin Globulin Albumin/Globulin Ratio Vitamin B12 858 Folate 6.8 TSH 3rd Generation Hepatitis A IgM Ab Hep Bs Antigen Hep B Core IgM Ab Hepatitis C Antibody HIV 1&2 Antibody Screen 09/14/17 09/14/17 09/14/17 08:19 08:19 08:19 WBC RBC Hgb Hct MCV MCH MCHC RDW Plt Count MPV Neut % (Auto) Lymph % (Auto) Crawford % (Auto) Eos % (Auto) Baso % (Auto) Neut # (Auto) Lymph # (Auto) Crawford # (Auto) Eos # (Auto) Baso # (Auto) Retic Count PT INR Sodium Potassium Chloride Carbon Dioxide Anion Gap BUN Creatinine Est GFR ( Amer) Est GFR (Non-Af Amer) POC Glucose (mg/dL) Random Glucose Lactic Acid 1.1 Calcium Ferritin Total Bilirubin AST ALT Alkaline Phosphatase Ammonia Total Protein Albumin Globulin Albumin/Globulin Ratio Vitamin B12 Folate TSH 3rd Generation Hepatitis A IgM Ab Negative Hep Bs Antigen Negative Hep B Core IgM Ab Negative Hepatitis C Antibody Negative HIV 1&2 Antibody Screen Negative 09/14/17 09/14/17 08:19 11:26 WBC RBC Hgb Hct MCV MCH MCHC RDW Plt Count MPV Neut % (Auto) Lymph % (Auto) Crawford % (Auto) Eos % (Auto) Baso % (Auto) Neut # (Auto) Lymph # (Auto) Crawford # (Auto) Eos # (Auto) Baso # (Auto) Retic Count PT INR Sodium Potassium Chloride Carbon Dioxide Anion Gap BUN Creatinine Est GFR ( Amer) Est GFR (Non-Af Amer) POC Glucose (mg/dL) 265 H Random Glucose Lactic Acid Calcium Ferritin Total Bilirubin AST ALT Alkaline Phosphatase Ammonia Total Protein Albumin Globulin Albumin/Globulin Ratio Vitamin B12 Folate TSH 3rd Generation 1.88 Hepatitis A IgM Ab Hep Bs Antigen Hep B Core IgM Ab Hepatitis C Antibody HIV 1&2 Antibody Screen Assessment & Plan (1) Head injury Assessment and Plan: There is no concern for intracranial injury. The patient is currently at baseline. I recommend that the patient is monitored closely to avoid further injury since he is likely dehydrated and is pancytopenic. He may be unstable due to these factors. Thank you. Status: Acute Priority: Medium
--- NOTE | 2017-09-14 16:30 | CP.PCM.PN ---
Subjective - Date & Time of Evaluation Date of Evaluation: 09/14/17 Time of Evaluation: 18:00 - Subjective Subjective: Pt seen and examined, on one to one watch, CT scan of the head did not show any intracranial abnormalities. Today, the patient is awake, alert and oriented without any notable cognitive deficits. Objective - Vital Signs/Intake and Output Vital Signs (last 24 hours): Temp Pulse Resp BP Pulse Ox 98.4 F 84 20 102/65 100 09/14/17 16:12 09/14/17 16:12 09/14/17 16:12 09/14/17 16:12 09/14/17 16:12 Intake and Output: 09/14/17 09/14/17 06:59 18:59 Intake Total 2100 Output Total Balance 2098 - Medications Medications: Current Medications Bisacodyl (Dulcolax) 10 mg PO ONCE NANCY Insulin Human Regular (Novolin R) 0 unit SC ACHS NANCY PRN Reason: Protocol Metoclopramide HCl (Reglan) 5 mg IVP Q6 [facility] Last Admin: 09/14/17 12:20 Dose: 5 mg Pantoprazole Sodium (Protonix Inj) 40 mg IVPB Q12H [facility] Last Admin: 09/14/17 05:21 Dose: 40 mg Thiamine HCl (Vitamin B1 Tab) 100 mg PO DAILY [facility] - Labs Labs: 09/14/17 08:19 09/14/17 08:19 PT 18.4 SECONDS (9.7-12.2) H 09/13/17 19:51 INR 1.7 09/13/17 19:51 APTT 27 SECONDS (21-34) 09/12/17 12:33 - Constitutional Appears: No Acute Distress, Confused - Head Exam Head Exam: ATRAUMATIC, NORMAL INSPECTION, NORMOCEPHALIC - Eye Exam Eye Exam: EOMI, Normal appearance, PERRL Pupil Exam: NORMAL ACCOMODATION, PERRL Assessment and Plan (1) Anemia Status: Acute (2) Gastrointestinal hemorrhage Assessment & Plan: rule put pepl=tic ulecr disease rule out alcohol induced gastritius Status: Acute (3) Head injury Status: Acute (4) Pancreatitis Status: Acute (5) Pancytopenia Status: Acute (6) Alcohol abuse Status: Acute (7) Acute alcohol intoxication delirium with mild use disorder Status: Acute
[2017-09-14] MEDS: (Novolin R) Insulin Human Regular 100 units/ml vial SC SCH ×2 (17:56→21:43)
--- NOTE | 2017-09-15 00:52 | CON ---
DATE: 09/14/2017 REASON FOR CONSULTATION: Sinus bradycardia. HISTORY OF PRESENT ILLNESS: The patient is a 46-year-old [place] male who was initially admitted because of watery diarrhea for two days. Hemoglobin and hematocrit on admission were 7.4 and 22.7. The patient has a history of ETOH abuse. The patient underwent upper and lower endoscopy with hemostasis therapy with elevated epinephrine to ileocecal valve and all over the colon. The patient also found to have colitis with bleeding through ileocecal valve. On the upper endoscopy, the patient was found to have gastritis with distal esophagitis and small esophageal varices. The patient denies any chest pain or prior cardiac history. The patient was noted to be bradycardic and he sustained a fall. Head CT scan without contrast reveals small amount of free fluid in the maxillary sinus, may be trauma. Scar versus focal edema in the left parietal scalp, correlation with physical findings would be helpful. The patient and his in the bedside denies any history of stroke in the past. SOCIAL HISTORY: The patient is ETOH abuser. He used to work as a maintenance mgr. MEDICATIONS: Intravenous potassium chloride replacement, Protonix 40 mg intravenously twice a day, Reglan 5 mg intravenously every 6 hours, Dulcolax 10 mg p.o. once a day. PHYSICAL EXAMINATION: GENERAL: The patient is a middle aged male who does not appear to be in acute distress. VITAL SIGNS: Blood pressure 107/72, heart rate 65, temperature 98.7, respirations 20. HEENT: The patient is noted to have mild nasal and truncal ecchymosis. Pale conjunctiva. CHEST: Clear. HEART: S1 and S2 regular. ABDOMEN: Soft. EXTREMITIES: No edema. LABORATORY DATA: Hemoglobin and hematocrit 7.6 and 23.2, white count 3, platelet count 56,000. Retic count elevated at 4.6, INR is 1.7, PT 18.4. SMA-7: Sodium 137, potassium 3.1, chloride 103, CO2 of 23, glucose 103, BUN 9, creatinine 0.6. TSH level is within normal limits. Hepatitis profile is negative. Urine drug screen is negative. Alcohol on admission was less than 10. GI bleeding scan, no evidence of active GI bleeding. Abdomen and pelvis CT scan on admission revealed edematous pancreatic head, uncinate process likely a mild acute pancreatitis, superimposed upon chronic pancreatitis. No evidence of pseudocyst. EKG revealed sinus rhythm at the rate of 65. ASSESSMENT: 1. Lower gastrointestinal bleeding, status post hemostasis therapy to the Ileocecal valve and the colon. 2. Mild sinus bradycardia. 3. ETOH abuse. 4. Rule out alcohol withdrawal. 5. Rule out seizure activity. 6. Pancytopenia. 7. Coagulopathy. 8. Hypokalemia. RECOMMENDATIONS: Continue current intravenous potassium replacement. Continue IV Protonix. Continue telemetry monitoring for precautions and seizure precautions. Obtain an echocardiogram and repeat CT scan without contrast. Ron Ramirez MD
--- NOTE | 2017-09-15 06:20 | CP.PCM.PN ---
Subjective - Date & Time of Evaluation Date of Evaluation: 09/15/17 Time of Evaluation: 06:17 - Subjective Subjective: Mr. Simental was seen and examined at the bedside. He is alert, oriented x 3. He denies any headache, dizziness, lightheadedness, nausea, or vomiting. He is able to follow simple commands. He further claims that he is back to baseline. There is no untoward events overnight. Objective - Vital Signs/Intake and Output Vital Signs (last 24 hours): Temp Pulse Resp BP Pulse Ox 98.8 F 64 20 107/66 100 09/15/17 00:00 09/15/17 04:22 09/15/17 00:00 09/15/17 00:00 09/15/17 00:00 Intake and Output: 09/14/17 09/15/17 18:59 06:59 Intake Total 2100 365 Output Total 1 Balance 2099 365 - Medications Medications: Current Medications Bisacodyl (Dulcolax) 10 mg PO ONCE NANCY Insulin Human Regular (Novolin R) 0 unit SC ACHS [facility] PRN Reason: Protocol Last Admin: 09/14/17 21:43 Dose: Not Given Metoclopramide HCl (Reglan) 5 mg IVP Q6 [facility] Last Admin: 09/15/17 05:13 Dose: 5 mg Pantoprazole Sodium (Protonix Inj) 40 mg IVPB Q12H [facility] Last Admin: 09/15/17 05:05 Dose: 40 mg Thiamine HCl (Vitamin B1 Tab) 100 mg PO DAILY [facility] - Labs Labs: 09/14/17 08:19 09/14/17 08:19 PT 18.4 SECONDS (9.7-12.2) H 09/13/17 19:51 INR 1.7 09/13/17 19:51 APTT 27 SECONDS (21-34) 09/12/17 12:33 - Constitutional Appears: No Acute Distress - Head Exam Head Exam: NORMAL INSPECTION - Eye Exam Pupil Exam: PERRL - Neurological Exam Neurological Exam: Alert, Awake, Oriented x3 Neuro motor strength exam: Left Upper Extremity: 5, Right Upper Extremity: 5, Left Lower Extremity: 5, Right Lower Extremity: 5 Additional comments: alert, oriented x 3, follows commands, sensation is intact. Assessment and Plan (1) Head injury Assessment & Plan: Case discussed with Dr. Higgins, continue all current medical regimen. Recommend to treat all electrolyte abnormalities, hydration, and continue neuro monitoring. Status: Acute
--- NOTE | 2017-09-15 06:44 | CON ---
DATE: 09/12/2017 I was called for a GI consultation by the admitting medical staff. The patient is seen and fully examined on 09/12/2017. HISTORY OF PRESENT ILLNESS: This is a 46 years old male who was admitted to the hospital due to multiple episodes of watery diarrhea, nausea and vomiting, abdominal pain, postprandial abdominal distention with trace of fresh blood rectally. PAST MEDICAL HISTORY: Including, 1. Peptic ulcer disease. 2. Diabetes mellitus. FAMILY HISTORY: Unknown. SOCIAL HISTORY: Known history of alcoholism. LABORATORY DATA: After being admitted to the hospital, the patient was found to have hemoglobin of 7.4, hematocrit 22.7 with a white blood cell of 2.8, and platelets of 60. Potassium of 3.2. Blood glucose level 155. PHYSICAL EXAMINATION: GENERAL/VITAL SIGNS: A 46 years old male appears to be somewhat cachectic with low-grade temperature, pulse of 74, respiratory rate 20 to 22, blood pressure 100/56. HEENT: Showed pale, dry oral mucous membranes. Nonicteric sclerae. LUNGS: Few scattered crepitation. Decreased air entry at bases. LYMPH NODES: No lymphadenitis or lymphadenopathy. HEART: Positive S1 and S2. ABDOMEN: Soft with mild generalized tenderness. No mass or organomegaly. No rebound tenderness or guarding. RECTAL EXAMINATION: The patient refused. EXTREMITIES: Without edema, clubbing, or cyanosis. NEUROLOGIC: No reported new neurological deficits, sensory or motor. IMPRESSION: 1. Severe anemia with evidence of pancytopenia. 2. Gastrointestinal blood loss, upper versus lower. 3. Alcoholism with possible alcoholic liver disease inducing pancytopenia. 4. Diarrhea, infectious versus mechanical. SUGGESTIONS: 1. I agree with your plan. 2. Endoscopic evaluation of the GI tract. 3. Hematology/oncology consult. 4. Correct any underlying coagulopathy. 5. Blood transfusions to keep hemoglobin around 10 gm percent. 6. Sectional abdominal and pelvic CAT scan. 7. Further recommendation to follow and H2 gianna IV . 8. Surgical consultation. 9. We will follow up with you p.r.n. both endoscopy. Ryan Kendall MD [facility] # [id number]
[2017-09-15 07:27] LABS: BASO % 0.6 % (0.0-2.0); EOS # 0.1 K/uL (0.0-0.7); EOS % 1.8 % (0.0-4.0); LYMPH # 1.5 K/uL (1.0-4.3); LYMPH % 37.6 % (20.0-40.0); MEAN CELL VOLUME 87.3 fL (80.0-94.0); MEAN CORPUSCULAR HEMOGLOBIN 28.9 pg (27.0-31.0); MEAN CORPUSCULAR HGB CONC 33.1 g/dL (33.0-37.0); MEAN PLATELET VOLUME 9.5 fL (7.2-11.7); MONO # 0.5 K/uL (0.0-0.8); MONO % 11.4 % (0.0-10.0); NEUT # 1.9 K/uL (1.8-7.0); NEUT % 48.6 % (50.0-75.0); NRBC % 0.2 % (0.0-2.0); RBC 3.55 Mil/uL (4.40-5.90); RED CELL DISTRIBUTION WIDTH 15.8 % (11.5-14.5)
[2017-09-15 07:32] LABS: HEMOGLOBIN 10.3 g/dL (12.0-18.0)
[2017-09-15 07:45] LABS: ALB/GLOB RATIO 1.1 (1.0-2.1); ALBUMIN 3.4 g/dL (3.5-5.0); ALT/SGPT 48 U/L (21-72); AST/SGOT 98 U/L (17-59); BLOOD UREA NITROGEN 3 mg/dL (9-20); CALCIUM 8.3 mg/dl (8.6-10.4); GFR AFRICAN-AMERICAN > 60; GFR NON-AFRICAN AMERICAN > 60
[2017-09-15] MEDS: (Novolin R) Insulin Human Regular 100 units/ml vial SC SCH ×3 (08:10→16:38)
--- NOTE | 2017-09-15 12:11 | CT ---
PROCEDURE: CT HEAD WITHOUT CONTRAST. HISTORY: repeat swtudy to be done tomorrow, s/p Fall COMPARISON: None available. TECHNIQUE: Axial computed tomography images were obtained through the head/brain without intravenous contrast. Radiation dose: Total exam DLP = 1082.69 mGy-cm. This CT exam was performed using one or more of the following dose reduction techniques: Automated exposure control, adjustment of the mA and/or kV according to patient size, and/or use of iterative reconstruction technique. FINDINGS: HEMORRHAGE: No intracranial hemorrhage. BRAIN: No mass effect or edema. No atrophy or chronic microvascular ischemic changes. VENTRICLES: Unremarkable. No hydrocephalus. CALVARIUM: Unremarkable. PARANASAL SINUSES: Unremarkable as visualized. No significant inflammatory changes. MASTOID AIR CELLS: Unremarkable as visualized. No inflammatory changes. OTHER FINDINGS: None. IMPRESSION: No intracranial hemorrhage. Unremarkable head CT examination.
[2017-09-15] MEDS ORDERED: Potassium Chloride 20 mEq ER Tab PO ONE (14:30)
[2017-09-15 16:03] VITALS: O2SAT 99
--- NOTE | 2017-09-15 17:37 | CP.PCM.PN ---
Subjective - Date & Time of Evaluation Date of Evaluation: 09/15/17 Time of Evaluation: 17:37 - Subjective Subjective: PATIENT IS ADMITTED FOR GI BLEEDING AAOX3 / WALKING AROUND THE UNIT / WILL TO GO HOME DENIES DIZZINESS / SOB / CHEST PAIN Objective - Vital Signs/Intake and Output Vital Signs (last 24 hours): Temp Pulse Resp BP Pulse Ox 98.3 F 67 20 109/74 99 09/15/17 16:00 09/15/17 16:00 09/15/17 16:00 09/15/17 16:00 09/15/17 16:00 Intake and Output: 09/15/17 09/15/17 06:59 18:59 Intake Total 365 400 Balance 365 400 - Medications Medications: Current Medications Bisacodyl (Dulcolax) 10 mg PO ONCE NANCY Insulin Human Regular (Novolin R) 0 unit SC ACHS [facility] PRN Reason: Protocol Last Admin: 09/15/17 16:38 Dose: Not Given Metoclopramide HCl (Reglan) 5 mg IVP Q6 [facility] Last Admin: 09/15/17 12:52 Dose: 5 mg Pantoprazole Sodium (Protonix Inj) 40 mg IVPB Q12H [facility] Last Admin: 09/15/17 16:40 Dose: 40 mg Phytonadione (Vitamin K Inj) 10 mg SC ONCE ONE Stop: 09/15/17 18:01 Thiamine HCl (Vitamin B1 Tab) 100 mg PO DAILY [facility] Last Admin: 09/15/17 09:47 Dose: 100 mg - Labs Labs: 09/15/17 07:16 09/15/17 07:16 PT 18.4 SECONDS (9.7-12.2) H 09/13/17 19:51 INR 1.7 09/13/17 19:51 APTT 27 SECONDS (21-34) 09/12/17 12:33 Assessment and Plan - Assessment and Plan (Free Text) Assessment: H/H IS STABLE/ PRBC TRANSFUSE X2 LUNG SOUND CLEAR RICHARD ABD BLEEDING SCAN SHOW NO SIGN OF BLEEDING CLEAR BY DR BARRIOS TO GO HOME DISCUSS WITH DR NEWELL WHO CLEAR PATIENT TO GO HOME FOLLOW UP WITH DR NEWELL IN 1-2 WEEK AT HIS OFFICE --CALL FOR APPOINTMENT NEW PRESCRIPTION GIVEN FOLIC ACID 1 MG PO DAILY THIAMINE 100 MG PO DIALY PEPCID 20 MG PO DIALY ACTIVITY TOLERATED CALL DR OSIRIS OR GO TO THE EMERGENCY ROOM IF SYMPTOMS RETURN OR WORSENING DISCUSS WITH PATIENT WHO AGREE AND VERBALIZED UNDERSTANDING
--- NOTE | 2017-09-15 17:54 | CARD ---
APPROVED REPORT EXAM: Two-dimensional and M-mode echocardiogram with Doppler and color Doppler. Other Information Quality : GoodRhythm : NSR INDICATION ANEMIA M-Mode DIMENSIONS RVDd1.62 (2.1-3.2cm)Left Atrium (MM)3.16 (2.5-4.0cm) IVSd0.62 (0.7-1.1cm)Aortic Root3.30 (2.2-3.7cm) LVDd4.48 (4.0-5.6cm)Aortic Cusp Exc.1.66 (1.5-2.0cm) PWd0.85 (0.7-1.1cm)FS (%) 36 % LVDs2.85 (2.0-3.8cm)LVEF (%)66 (>50%) Aortic Valve AoV Peak Luurfbfj583.3cm/Rogelio Peak GR.8mmHg Mitral Valve MV E Pwbphbfc58.0cm/sMV A Plvhlhbz58.9cm/sE/A ratio1.1 TDI E/Lateral E'0.0E/Medial E'0.0 Tricuspid Valve TR Peak [id number]/sTR Peak Gr.[id number] LEFT VENTRICLE The left ventricle is normal size. There is normal left ventricular wall thickness. The left ventricular function is normal. The left ventricular ejection fraction is within the normal range.70% No regional wall motion abnormalities noted. The left ventricular diastolic function is normal. No left ventricle thrombus noted on this study. There is no ventricular septal defect visualized. There is no left ventricular aneurysm. There is no mass noted in the left ventricle. RIGHT VENTRICLE The right ventricle is normal size. There is normal right ventricular wall thickness. The right ventricular systolic function is normal. ATRIA The left atrium size is normal. The right atrium size is normal. The interatrial septum is intact with no evidence for an atrial septal defect. AORTIC VALVE The aortic valve is normal in structure and function. No aortic regurgitation is present. There is no aortic valvular stenosis. There is no aortic valvular vegetation. MITRAL VALVE The mitral valve is normal in structure and function. There is no evidence of mitral valve prolapse. There is no mitral valve stenosis. There is no mitral valve regurgitation noted. TRICUSPID VALVE The tricuspid valve is normal in structure and function. There is no tricuspid valve regurgitation noted. There is no tricuspid valve prolapse or vegetation. There is no tricuspid valve stenosis. PULMONIC VALVE The pulmonary valve is normal in structure and function. There is no pulmonic valvular regurgitation. There is no pulmonic valvular stenosis. GREAT VESSELS The aortic root is normal in size. There is mildl dilation of the non-coronary sinus. The ascending aorta is normal in size. The pulmonary artery is normal. The IVC is normal in size and collapses >50% with inspiration. PERICARDIAL EFFUSION The pericardium appears normal. There is no pleural effusion. <Conclusion> Normal left ventricular systolic function and Doppler. The aortic root is normal in size. There is mildl dilation of the non-coronary sinus.
[2017-09-15] MEDS ORDERED: Phytonadione 10 mg/ml Inj (Adult) SC ONE (18:00)
[2017-09-15 18:17] VITALS: BP 110/70; PULSE 84; RESP 18; TEMP 98.2
--- NOTE | 2017-09-15 21:56 | PN ---
DATE: 09/15/2017 SUBJECTIVE: The patient appears confused. He is on one-to-one watch. His mother is at the bedside. PHYSICAL EXAMINATION: VITAL SIGNS: Blood pressure 109/74, heart rate 67, temperature 98.3, and respirations 20. HEENT: Nasal ecchymosis. CHEST: Clear. HEART: S1 and S2 regular. EXTREMITIES: No edema. LABORATORY DATA: Today's potassium is 3.4, glucose 125. Today's hemoglobin and hematocrit 10.3 and 31, white count 4, platelet count 85,000. Head CT scan without contrast, no intracranial hemorrhage, unremarkable head CT scan. ASSESSMENT: 1. Status post fall. 2. Improved sinus bradycardia. 3. EtOH abuse. 4. Anemia and thrombocytopenia. 5. Mild coagulopathy. 6. Hypokalemia. RECOMMENDATIONS: The patient has received K-Dur 20 mEq p.o. now. Continue thiamine 100 mg once a day, Protonix 40 mg intravenously every 12 hours. I will administer vitamin K 10 mg subcutaneously today. Ron Ramirez MD
--- NOTE | 2017-09-15 23:05 | CP.PCM.DIS ---
Provider - Provider Date of Admission: 09/12/17 14:00 Attending physician: Reilly Dill MD Time Spent in preparation of Discharge (in minutes): 45 Diagnosis - Discharge Diagnosis (1) Anemia Status: Acute (2) Gastrointestinal hemorrhage Status: Acute (3) Head injury Status: Acute Priority: Medium (4) Pancreatitis Status: Acute (5) Pancytopenia Status: Acute (6) Alcohol abuse Status: Acute (7) Acute alcohol intoxication delirium with mild use disorder Status: Acute Hospital Course - Lab Results Lab Results: Most Recent Lab Values WBC 4.0 K/uL (4.8-10.8) L 09/15/17 07:16 RBC 3.55 Mil/uL (4.40-5.90) L 09/15/17 07:16 Hgb 10.3 g/dL (12.0-18.0) L D 09/15/17 07:16 Hct 31.0 % (35.0-51.0) L 09/15/17 07:16 MCV 87.3 fL (80.0-94.0) 09/15/17 07:16 MCH 28.9 pg (27.0-31.0) 09/15/17 07:16 MCHC 33.1 g/dL (33.0-37.0) 09/15/17 07:16 RDW 15.8 % (11.5-14.5) H 09/15/17 07:16 Plt Count 85 K/uL (130-400) L D 09/15/17 07:16 MPV 9.5 fL (7.2-11.7) 09/15/17 07:16 Neut % (Auto) 48.6 % (50.0-75.0) L 09/15/17 07:16 Lymph % (Auto) 37.6 % (20.0-40.0) 09/15/17 07:16 [place] % (Auto) 11.4 % (0.0-10.0) H 09/15/17 07:16 Eos % (Auto) 1.8 % (0.0-4.0) 09/15/17 07:16 Baso % (Auto) 0.6 % (0.0-2.0) 09/15/17 07:16 Neut # (Auto) 1.9 K/uL (1.8-7.0) 09/15/17 07:16 Lymph # (Auto) 1.5 K/uL (1.0-4.3) 09/15/17 07:16 [place] # (Auto) 0.5 K/uL (0.0-0.8) 09/15/17 07:16 Eos # (Auto) 0.1 K/uL (0.0-0.7) 09/15/17 07:16 Baso # (Auto) 0.0 K/uL (0.0-0.2) 09/15/17 07:16 Differential Comment 09/12/17 12:33 Smear Path Review 09/12/17 22:54 Retic Count 4.6 % (0.5-1.5) H 09/14/17 08:19 PT 18.4 SECONDS (9.7-12.2) H 09/13/17 19:51 INR 1.7 09/13/17 19:51 APTT 27 SECONDS (21-34) 09/12/17 12:33 Sodium 136 mmol/L (132-148) 09/15/17 07:16 Potassium 3.4 mmol/L (3.6-5.2) L 09/15/17 07:16 Chloride 100 mmol/L (98-107) 09/15/17 07:16 Carbon Dioxide 26 mmol/L (22-30) 09/15/17 07:16 Anion Gap 14 (10-20) 09/15/17 07:16 BUN 3 mg/dL (9-20) L 09/15/17 07:16 Creatinine 0.5 mg/dL (0.8-1.5) L 09/15/17 07:16 Est GFR ( Amer) > 60 09/15/17 07:16 Est GFR (Non-Af Amer) > 60 09/15/17 07:16 POC Glucose (mg/dL) 131 mg/dL (65-110) H 09/15/17 16:25 Random Glucose 125 mg/dL (75-110) H 09/15/17 07:16 Lactic Acid 1.1 mmol/L (0.7-2.1) 09/14/17 08:19 Calcium 8.3 mg/dl (8.6-10.4) L 09/15/17 07:16 Ferritin 36.5 ng/mL 09/14/17 08:19 Total Bilirubin 1.9 mg/dL (0.2-1.3) H 09/15/17 07:16 AST 98 U/L (17-59) H 09/15/17 07:16 ALT 48 U/L (21-72) 09/15/17 07:16 Alkaline Phosphatase 108 U/L (38-126) 09/15/17 07:16 Ammonia < 9 umol/L (9-33) L 09/14/17 08:19 Total Protein 6.4 g/dL (6.3-8.3) 09/15/17 07:16 Albumin 3.4 g/dL (3.5-5.0) L 09/15/17 07:16 Globulin 3.0 gm/dL (2.2-3.9) 09/15/17 07:16 Albumin/Globulin Ratio 1.1 (1.0-2.1) 09/15/17 07:16 Lipase 39 U/L (23-300) 09/12/17 12:33 Vitamin B12 858 pg/mL (239-931) 09/14/17 08:19 Folate 6.8 ng/mL 09/14/17 08:19 TSH 3rd Generation 1.88 mIU/L (0.46-4.68) 09/14/17 08:19 Urine Color [place] (YELLOW) 09/12/17 12:33 Urine Clarity Clear (Clear) 09/12/17 12:33 Urine pH 8.0 (5.0-8.0) 09/12/17 12:33 Ur Specific [place] 1.021 (1.003-1.030) 09/12/17 12:33 Urine Protein 1+ mg/dL (NEGATIVE) H 09/12/17 12:33 Urine Glucose (UA) Normal mg/dL (Normal) 09/12/17 12:33 Urine Ketones 1+ mg/dL (NEGATIVE) H 09/12/17 12:33 Urine Blood Negative (NEGATIVE) 09/12/17 12:33 Urine Nitrate Negative (NEGATIVE) 09/12/17 12:33 Urine Bilirubin Negative (NEGATIVE) 09/12/17 12:33 Urine Urobilinogen 4.0 mg/dL (0.2-1.0) 09/12/17 12:33 Ur Leukocyte Esterase Neg [place]/uL (Negative) 09/12/17 12:33 Urine WBC (Auto) < 1 /hpf (0-5) 09/12/17 12:33 Urine RBC (Auto) < 1 /hpf (0-3) 09/12/17 12:33 Ur Squamous Epith Cells < 1 /hpf (0-5) 09/12/17 12:33 Urine Opiates Screen Negative (NEGATIVE) 09/12/17 12:33 Urine Methadone Screen Negative (NEGATIVE) 09/12/17 12:33 Ur Barbiturates Screen Negative (NEGATIVE) 09/12/17 12:33 Ur Phencyclidine Scrn Negative (NEGATIVE) 09/12/17 12:33 Ur Amphetamines Screen Negative (NEGATIVE) 09/12/17 12:33 U Benzodiazepines Scrn Negative (NEGATIVE) 09/12/17 12:33 U Oth Cocaine Metabols Negative (NEGATIVE) 09/12/17 12:33 U Cannabinoids Screen Negative (NEGATIVE) 09/12/17 12:33 Alcohol, Quantitative < 10 mg/dl (0-10) 09/12/17 12:33 Hepatitis A IgM Ab Negative (NEGATIVE) 09/14/17 08:19 Hep Bs Antigen Negative (NEGATIVE) 09/14/17 08:19 Hep B Core IgM Ab Negative (NEGATIVE) 09/14/17 08:19 Hepatitis C Antibody Negative (NEGATIVE) 09/14/17 08:19 HIV 1&2 Antibody Screen Negative (NEGATIVE) 09/14/17 08:19 Blood Type B POSITIVE 09/12/17 14:13 Blood Type Confirm B POSITIVE 09/12/17 14:13 Antibody Screen Negative 09/12/17 14:13 - Hospital Course Hospital Course: PT SEEN AND EXAMINED, STABLE FOR DISCHARGE FOLLOW UP OUTPATINT IN 1-2 WEEK AT HIS OFFICE --CALL FOR APPOINTMENT NEW PRESCRIPTION GIVEN FOLIC ACID 1 MG PO DAILY THIAMINE 100 MG PO DIALY PEPCID 20 MG PO DIALY ACTIVITY TOLERATED CALL DR DILL OR GO TO THE EMERGENCY ROOM IF SYMPTOMS RETURN OR WORSENING Discharge Exam - Head Exam Head Exam: NORMAL INSPECTION Discharge Plan - Discharge Medications Prescriptions: Folic Acid 1 mg PO DAILY 30 Days tab Famotidine [Pepcid] 20 mg PO DAILY #30 tab Thiamine [Vitamin B1 Tab] 100 mg PO DAILY 30 Days tab - Follow Up Plan Condition: STABLE Disposition: HOME/ ROUTINE Instructions: Pancreatitis (DC), Gastrointestinal Bleeding (DC), Famotidine, Folic Acid, Thiamine, Normocytic Normochromic Anemia (DC) Additional Instructions: FOLLOW UP WITH DR DILL IN 1-2 WEEK AT HIS OFFICE --CALL FOR APPOINTMENT NEW PRESCRIPTION GIVEN FOLIC ACID 1 MG PO DAILY THIAMINE 100 MG PO DIALY PEPCID 20 MG PO DIALY ACTIVITY TOLERATED CALL DR DILL OR GO TO THE EMERGENCY ROOM IF SYMPTOMS RETURN OR WORSENING Referrals: Ben Branham MD [Staff Provider] - Ryan Velázquez [Staff Provider] - Reilly Dill MD [Staff Provider] -
--- NOTE | 2017-09-17 00:19 | CP.PCM.PN ---
Subjective - Date & Time of Evaluation Date of Evaluation: 09/14/17 Time of Evaluation: 15:00 - Subjective Subjective: Appears comfortable Objective - Vital Signs/Intake and Output Vital Signs (last 24 hours): Temp Pulse Resp BP Pulse Ox 98.2 F 84 18 110/70 99 09/15/17 18:16 09/15/17 18:16 09/15/17 18:16 09/15/17 18:16 09/15/17 16:00 - Labs Labs: 09/15/17 07:16 09/15/17 07:16 PT 18.4 SECONDS (9.7-12.2) H 09/13/17 19:51 INR 1.7 09/13/17 19:51 APTT 27 SECONDS (21-34) 09/12/17 12:33 - Head Exam Head Exam: ATRAUMATIC - Eye Exam Eye Exam: Normal appearance - ENT Exam ENT Exam: Mucous Membranes Dry - Respiratory Exam Respiratory Exam: NORMAL BREATHING PATTERN - Cardiovascular Exam Cardiovascular Exam: +S1, +S2 - GI/Abdominal Exam GI & Abdominal Exam: Normal Bowel Sounds Assessment and Plan (1) Pancytopenia Assessment & Plan: likely bone marrow suppression from alcohol anemia of GI blood loss; GI w/u in progress borderline iron stores Status: Acute
--- NOTE | 2017-09-17 00:21 | CP.PCM.PN ---
Subjective - Date & Time of Evaluation Date of Evaluation: 09/15/17 Time of Evaluation: 12:00 - Subjective Subjective: Appears comfortable Objective - Vital Signs/Intake and Output Vital Signs (last 24 hours): Temp Pulse Resp BP Pulse Ox 98.2 F 84 18 110/70 99 09/15/17 18:16 09/15/17 18:16 09/15/17 18:16 09/15/17 18:16 09/15/17 16:00 - Labs Labs: 09/15/17 07:16 09/15/17 07:16 PT 18.4 SECONDS (9.7-12.2) H 09/13/17 19:51 INR 1.7 09/13/17 19:51 APTT 27 SECONDS (21-34) 09/12/17 12:33 - Head Exam Head Exam: ATRAUMATIC - Eye Exam Eye Exam: Normal appearance - ENT Exam ENT Exam: Mucous Membranes Dry - Respiratory Exam Respiratory Exam: NORMAL BREATHING PATTERN - Cardiovascular Exam Cardiovascular Exam: +S1, +S2 - GI/Abdominal Exam GI & Abdominal Exam: Normal Bowel Sounds Assessment and Plan (1) Pancytopenia Assessment & Plan: likely bone marrow suppression from alcohol borderlin iron stores, s/p GI w/u transfusion support PRN alcohol cessation Status: Acute
== END 2017-09-15 18:17 | disposition home or self-care (01) | DRG 551 ==
LOC: C.ER 11:15 → C.9E 14:00 → C.5S 16:53
PROVIDERS: ADMIT Internal Medicine; ATTEND Internal Medicine
PROC: 0DJD8ZZ Inspection of Lower Intestinal Tract, Via Natural or Artificial Opening Endoscopic (ICD-10-PCS; principal; 2017-09-13 10:42)
PROC: 0DJ08ZZ Inspection of Upper Intestinal Tract, Via Natural or Artificial Opening Endoscopic (ICD-10-PCS; 2017-09-13 10:42)
DX: A09 Infectious gastroenteritis and colitis, unspecified (principal); K85.90 Acute pancreatitis without necrosis or infection, unspecified; D61.818 Other pancytopenia; E87.6 Hypokalemia; F10.121 Alcohol abuse with intoxication delirium; D50.0 Iron deficiency anemia secondary to blood loss (chronic); K92.2 Gastrointestinal hemorrhage, unspecified; E11.9 Type 2 diabetes mellitus without complications; E86.0 Dehydration; Y90.0 Blood alcohol level of less than 20 mg/100 ml; K21.9 Gastro-esophageal reflux disease without esophagitis; S09.90XA Unspecified injury of head, initial encounter; W19.XXXA Unspecified fall, initial encounter; R00.1 Bradycardia, unspecified; I85.00 Esophageal varices without bleeding